=== PATIENT | male | born 1985 | race Caucasian/White ===

== ENCOUNTER 2018-07-21 19:05 | Emergency (ER) | payer MEDICAID ==
[~2018-07-21] VITALS: Ht 175.3 cm; Wt 68.0 kg
[2018-07-21] MEDS ORDERED: EMTR1TAB12 PO (19:15)
[2018-07-21] MEDS ORDERED: SULFAMETH/TRIMETH 800/160 MG TABLET PO ONE (20:30)
[2018-07-21] MEDS ORDERED: SULFAMETH/TRIMETH 800/160 MG TABLET ONE (20:38)
--- NOTE | 2018-07-21 20:46 | NUR ---
L hand slightly swollen area but no redness and skin normal temp. cap refill good. rx given. advised rest. hot compress tid. fu in 2 days and return if symptoms increase change or persist
[2018-07-21 20:49] VITALS: BP 132/56
== END 2018-07-21 20:52 | disposition home or self-care (01) ==
LOC: ER 19:05
DX: T80.1XXA Vascular complications following infusion, transfusion and therapeutic injection, initial encounter (principal); I80.8 Phlebitis and thrombophlebitis of other sites; Z79.899 Other long term (current) drug therapy
CPT/HCPCS: A4663